=== PATIENT | female | born 1985 | race Caucasian/White ===

== ENCOUNTER 2016-11-12 21:18 | Inpatient (IN) ==
[2016-11-12] MEDS ORDERED: Ondansetron 4 MG/2 ML VIAL IVP ONE (21:39)
--- NOTE | 2016-11-12 21:39 | Emergency Department Note ---
Overdose - [facility] Narrative Medical decision making narrative: After stabilization, pulse ox is now 90% on nonrebreather. Patient began having vomiting, gave her Zofran. Will obtain overdose labs, chest x-ray. Patient's significant wheezes and rhonchi bilateral lower lobes. Will admit for hypoxia, overdose, possible aspiration pneumonia and start antibiotics. 23:14 patient has leukocytosis, a catheter on labs. Chest x-ray was negative. However, still concern for aspiration pneumonia, may just be too early to show up on x-ray. We will give patient fluids, vancomycin, Zosyn. Patient continues to refuse urinating for UA. - Medical Records Medical records reviewed: Yes I reviewed the patient's medical records. - Lab Data Lab results reviewed: Yes I reviewed the patient's lab results. Result diagrams: 11/12/16 21:35 11/12/16 21:35 Lab Results 11/12/16 11/12/16 11/12/16 Range/Units 21:35 21:35 21:35 WBC 24.5 H (4.3-11.1) K/mcL RBC 4.09 (3.82-4.97) M/mcL Hgb 12.1 (11.5-15.4) g/dL Hct 39.2 (35.3-44.9) % MCV 95.8 (83.0-100.0) fL MCH 29.6 (28.0-33.3) pg MCHC 30.9 L (31.6-35.5) g/dL RDW 14.4 (11.5-14.5) % Plt Count 464 H (140-400) K/mcL MPV 11.5 (9.4-12.4) fL Seg Neutrophils % 70.0 % Band Neutrophils % 0.0 (0-4) % Lymphocytes % 23.0 % Monocytes % 6.0 % Eosinophils % 1.0 % Neutrophils # 17.2 H (1.6-8.9) K/mcL Lymphocytes # 5.6 H (0.6-4.6) K/mcL Monocytes # 1.5 H (0.0-1.3) K/mcL Eosinophils # 0.3 (0.0-0.6) K/mcL Platelet Estimate Slight increase H (Normal) Sodium 139 (136-145) mEq/L Potassium 4.9 H (3.5-4.5) mEq/L Chloride 101 (98-109) mEq/L Carbon Dioxide 21 (19-29) mEq/L BUN 12 (7-20) mg/dL Creatinine 1.47 H (0.57-1.11) mg/dL Est GFR ( Amer) 51 L (> 60) Est GFR (Non-Af Amer) 42 L (> 60) BUN/Creatinine Ratio 8 (6-26) Glucose 388 H (70-99) mg/dL Calculated Osmolality 304 H (280-300) Calcium 9.0 (8.6-10.8) mg/dL Troponin I 0.01 (0-0.03) ng/mL B-Natriuretic Peptide (0-100) pg/mL Salicylates < 5.0 L (15-30) mg/dL Acetaminophen < 1.0 L (10-30) mcg/mL Ethyl Alcohol < 10 (0-10) mg/dL 11/12/16 Range/Units 21:35 WBC (4.3-11.1) K/mcL RBC (3.82-4.97) M/mcL Hgb (11.5-15.4) g/dL Hct (35.3-44.9) % MCV (83.0-100.0) fL MCH (28.0-33.3) pg MCHC (31.6-35.5) g/dL RDW (11.5-14.5) % Plt Count (140-400) K/mcL MPV (9.4-12.4) fL Seg Neutrophils % % Band Neutrophils % (0-4) % Lymphocytes % % Monocytes % % Eosinophils % % Neutrophils # (1.6-8.9) K/mcL Lymphocytes # (0.6-4.6) K/mcL Monocytes # (0.0-1.3) K/mcL Eosinophils # (0.0-0.6) K/mcL Platelet Estimate (Normal) Sodium (136-145) mEq/L Potassium (3.5-4.5) mEq/L Chloride (98-109) mEq/L Carbon Dioxide (19-29) mEq/L BUN (7-20) mg/dL Creatinine (0.57-1.11) mg/dL Est GFR ( Amer) (> 60) Est GFR (Non-Af Amer) (> 60) BUN/Creatinine Ratio (6-26) Glucose (70-99) mg/dL Calculated Osmolality (280-300) Calcium (8.6-10.8) mg/dL Troponin I (0-0.03) ng/mL B-Natriuretic Peptide 21 (0-100) pg/mL Salicylates (15-30) mg/dL Acetaminophen (10-30) mcg/mL Ethyl Alcohol (0-10) mg/dL - Radiology Data Radiology results reviewed: Yes I reviewed the patient's radiology results. Chest X-Ray 11/12/16 21:29 IMPRESSION: No acute process. D/ / Rock Rose MD / Rock Rose MD Interpreting Provider: Rock Rose MD Overdose HPI - General Chief Complaint: ED Overdose Stated Complaint: overdose Time Seen by Provider: 11/12/16 21:28 Source: other Limitations: other Nursing Notes Reviewed: Yes Vital Signs Reviewed: Yes - History of Present Illness HPI Narrative: Patient is a 30-year-old female with unknown past medical history who presents today by private vehicle due to overdose. Patient was wheeled into the room, slumped over, not responding, very pale. She did have weak pulses and agonal breathing. Patient was bagged, given 4 mg of Narcan. Initial oxygen saturation was in the 40s. Patient became responsive shortly after Narcan. She then sat up and had significant wheezing and rhonchi in bilateral lower lobes on exam. Placed on nonrebreather and sats came up to low 90s. - Related Data Previous Rx's Medication Instructions Recorded Ciprofloxacin [Cipro] 500 mg PO BID #14 tablet 07/03/16 Ibuprofen [Motrin] 800 mg PO Q8HR PRN #30 tablet 07/03/16 Phenazopyridine HCl [Pyridium] 200 mg PO TID #6 tab 07/03/16 Allergies Allergy/AdvReac Type Severity Reaction Status Date / Time No Known Allergies Allergy Verified 03/25/15 19:45 Limitations: ROS unobtainable due to patients medical condition Past Medical History - Past Medical History Medical history: Reports: non-contributory Surgical history: Reports: other Psychiatric history: Reports: no psych history TABLE LEVER 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: Reports: no TABLE LEVER 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 - Social History Smoking Status: Current every day smoker Smokeless Tobacco Status: No Alcohol use: Reports: none Drug use: Reports: none Physical Exam - General Limitations: other General appearance: in distress - Head Head exam: atraumatic, normocephalic, normal inspection - Eye Eye exam: Present: normal appearance, PERRL, EOMI - Neck Neck exam: Present: normal inspection, full ROM, trachea midline - Chest Chest inspection: Present: normal inspection, other (shallow chest rise) - Respiratory Respiratory exam: Present: wheezes (Significant wheeze and rhonchi of bilateral LL) - Cardiovascular Cardiovascular exam: Present: normal rhythm, tachycardia, normal heart sounds - Abdominal Exam Abdominal exam: Present: soft. Absent: distention - Extremities Exam Extremities exam: Present: other (multiple track del rosario on left wrist, bruising of thighs) - Neurological Exam Neurological exam: Present: other - Psychiatric Psychiatric exam: Present: other (unresponsive) - Skin Skin exam: Present: other (multiple track del rosario on left wrist, bruising of thighs) Course Course Narrative: After stabilization, pulse ox is now 90% on nonrebreather. Patient began having vomiting, gave her Zofran. Will obtain overdose labs, chest x-ray. Patient's significant wheezes and rhonchi bilateral lower lobes. Will admit for hypoxia, overdose, possible aspiration pneumonia and start antibiotics. 23:14 patient has leukocytosis, a catheter on labs. Chest x-ray was negative. However, still concern for aspiration pneumonia, may just be too early to show up on x-ray. We will give patient fluids, vancomycin, Zosyn. Patient continues to refuse urinating for UA. Vital Signs Temperature 0 F L 11/12/16 21:19 Pulse Rate 128 11/12/16 21:19 Respiratory Rate 12 11/12/16 21:19 Blood Pressure 109/84 11/12/16 21:19 O2 Sat by Pulse Oximetry 90 11/12/16 21:19 Temperature 0 F L 11/12/16 21:19 Pulse Rate 115 11/12/16 23:02 Respiratory Rate 22 11/12/16 23:02 Blood Pressure 114/72 11/12/16 23:02 O2 Sat by Pulse Oximetry 96 11/12/16 23:02 Oxygen Delivery Oxygen Delivery Nasal Cannula Critical Care Time Critical Care Time: Yes Total Critical Care Time: 35 Attestation: The high probability of a clinically significant, sudden or life threatening deterioration of the resp system(s) required my full and direct attention, intervention and personal management. The aggregate critical care time was [35] minutes. This time is in addition to time spent performing reported procedures but includes the following: [] Data Review and interpretation [] Patient assessment and monitoring of vital signs [] Documentation [] Medication orders and management Disposition Clinical Impression: ASHLEE (acute kidney injury), Cough Overdose Qualifiers: Encounter type: initial encounter Injury intent: accidental or unintentional Qualified Code(s): T50.901A - Poisoning by unspecified drugs, medicaments and biological substances, accidental (unintentional), initial encounter Leukocytosis Qualifiers: Leukocytosis type: unspecified Qualified Code(s): D72.829 - Elevated white blood cell count, unspecified Dyspnea Qualifiers: Dyspnea type: unspecified Qualified Code(s): R06.00 - Dyspnea, unspecified Disposition: Admitted As Inpatient Condition: Fair Referrals: Unassigned,Provider [Non-Partnered Physician] - Forms: ED Satisfaction Letter Time of Disposition: 23:46 (Admit to ICU) S.B.A.Monica - S.B.A.Monica Situation: Demographics, MOA Background: Presenting Complaint, Relevant PMH, Meds, & Allergies Assessment: Vital Signs, Course and respsone to treatment, Exam Concerns, Patient/Family Expectation, Pertinant Lab Results, Outstanding Labs Recommendation: Barrier(s) to disposition, Recommendation based on pending studies, treatments, or consults S.B.A.REliz Report Given to: Dr. Salvador Aldridge Repor Time: 23:46 Attestation Statement - Attestation Attestation: I examined this patient and my medical decision-making was reviewed with the BOOKING OFFICER/PA/Advanced Practice Nurse/Resident Physician. I agree with the documented findings, disposition and treatment plan as described except to the extent set forth below.
[2016-11-12 21:42] LABS: Hematocrit 39.2 % (35.3-44.9); Hemoglobin 12.1 g/dL (11.5-15.4); Mean Corpuscular HGB Conc 30.9 g/dL (31.6-35.5); Mean Corpuscular Hemoglobin 29.6 pg (28.0-33.3); Mean Corpuscular Volume 95.8 fL (83.0-100.0); Mean Platelet Volume 11.5 fL (9.4-12.4); Platelet Count 464 K/mcL (140-400); Red Blood Count 4.09 M/mcL (3.82-4.97); Red Cell Distribution Width 14.4 % (11.5-14.5)
[2016-11-12 21:57] LABS: BUN/Creatinine Ratio 8 (6-26); Blood Urea Nitrogen 12 mg/dL (7-20); Carbon Dioxide 21 mEq/L (19-29); Chloride 101 mEq/L (98-109); Glucose 388 mg/dL (70-99); Osmolality,Calculated 304 (280-300); Potassium 4.9 mEq/L (3.5-4.5); Sodium 139 mEq/L (136-145); eGFR For African Americans 51 (> 60); eGFR For Non-African Americans 42 (> 60)
[2016-11-12 21:58] LABS: Acetaminophen < 1.0 mcg/mL (10-30); Ethanol < 10 mg/dL (0-10); Salicylate < 5.0 mg/dL (15-30)
[2016-11-12 22:02] LABS: Eosinophils # 0.3 K/mcL (0.0-0.6); Lymphocytes # 5.6 K/mcL (0.6-4.6); Monocytes # 1.5 K/mcL (0.0-1.3); Neutrophils # 17.2 K/mcL (1.6-8.9)
[2016-11-12] MEDS ORDERED: 0.9 % Sodium Chloride 1,000 ML ONE (22:31)
[2016-11-12] MEDS ORDERED: *HR* Promethazine 25 MG/ML VIAL IVP ONE (23:02)
[2016-11-12] MEDS ORDERED: Vancomycin 1,000 MG in D5% in Water 250 ML IVPB ONE (23:04)
[2016-11-12] MEDS ORDERED: Piperacillin/Tazobactam 3.375 GM in D5% in Water (Mini-Bag+) 100 ML IVPB ONE (23:04)
--- NOTE | 2016-11-13 00:38 | Internal Med History&Physical ---
<Dav Gates - Last Filed: 11/13/16 02:18> Date of Encounter: 11/13/16 Time of Encounter: 00:10 Assessment and Plan (1) Overdose Current visit: Yes Status: Acute Patient presented unresponsive following heroin usage at a friend's house earlier this evening. She was given Narcan in the ED, to which she responded well. She continued to be somnolent, but was answer to respond to questions and follow commands appropriately. Will continue to monitor patient for signs of withdrawal Continue telemetry given tachycardia Will continue Pulse oximetry given patient recent hypoxia Will continue Vancomycin and start patient on Unasyn because of concern of oral bacteria inoculation Nausea control with Zofran, Phergan, Compazine, or reglan will obtain HIV and hepatitis profile Continue supplemental fluids Likely patient can move to stepdown, but will watch her overnight Will obtain UDS Will obtain UA Acetaminophen for fever Qualifiers: Encounter type: initial encounter Injury intent: accidental or unintentional Qualified Code(s): T50.901A - Poisoning by unspecified drugs, medicaments and biological substances, accidental (unintentional), initial encounter (2) Leukocytosis Current visit: Yes Status: Acute Patient presents with elevated white blood cell count 24.5, 17.2 neutrophils number. This elevation is likely related to patient hair one overdose. Chest x -ray was negative for acute process, does not appear to be any cellulitis or abscess, and urine so far cannot be obtained due to patient refusal. There is concern of bacteremia/endocarditis given patient history of IV drug abuse, increased body temperature, and leukocytosis. No murmurs heard on exam We will obtain blood cultures Antibiotics with vancomycin and Unasyn due to concerns of oral bacteria and MRSA We will obtain HIV screen and hepatitis profile We will check lactic acid and hepatic panel Patient leukocytosis will likely improve given administration of IV fluids, but will recheck CBC in the morning Qualifiers: Leukocytosis type: unspecified Qualified Code(s): D72.829 - Elevated white blood cell count, unspecified (3) ASHLEE (acute kidney injury) Current visit: Yes Status: Acute Patient presents with acute kidney injury with elevated serum creatinine 1.47, previous documented serum creatinine 0.85. Current ASHLEE likely due to decreased by mouth intake with drug usage and nausea. Patient received 2 L bolus in the emergency department. Patient appears dry on exam. We will give additional fluid bolus Continue supplemental fluids 100 mL an hour Allow patient to eat/drink We will obtain UA Recheck serum creatinine with morning chemistry (4) Dyspnea Current visit: Yes Status: Acute Patient initially presented with some dyspnea, best patient became more responsive shortness of breath improved. She no longer requires supplemental oxygen is maintaining an oxygen saturation in the high 90s to 100 on room air. We will continue to monitor patient on continuous pulse oximetry We will provide supplemental oxygen as needed to maintain oxygen saturation, and will wean as tolerated Qualifiers: Dyspnea type: unspecified Qualified Code(s): R06.00 - Dyspnea, unspecified (5) Hyperkalemia Current visit: Yes Status: Acute Patient has hyperkalemia 4.9, likely related to patient hyperglycemia. Will expect potassium to improve with fluids and better control patient blood sugar. We will continue to monitor with chemistry in the morning We will give another 500 mL bolus fluids Continue supplemental normal saline at 100 mL an hour (6) Hyperglycemia Current visit: Yes Status: Acute Patient hyperglycemia likely related to stress reaction given unresponsiveness with recent drug usage. We will obtain hemoglobin A1c Every 6 hours Accu-Cheks Low-dose sliding scale insulin Likely patient's hyperglycemia will resolve with the use of fluids (7) DVT prophylaxis Current visit: Yes Status: Acute 5000 units heparin subcutaneous 3 times a day Internal Medicine - H&P: HPI Chief complaint: Unresponsive, OD Admitted From: Home Plans for Post Hospital Care: Home History of present illness: Ms. Patrick is a 30 year old female with no significant prior medical history who is brought to [place] because of unresponsiveness after heroin usage. She was given Narcan in the emergency room and responded well. She became responsive and was able to maintain her oxygen saturation without the need for supplemental oxygen. She states that she had gone out that evening was having a lot of friends of hers and they had done some heroin. Bowels last night she remembers before waking up in the hospital. Although responsive now, she has continued to have nausea and vomiting. She also complains of fatigue, headache, and feeling cold. She states is not the first time she is on heroin, but she does report using clean needles. She does report liking her needles before use, however. She denies any chest pain, fever , or pain with breathing. Past Med Surg Social Fam HX - Past Medical History Medical history: non-contributory Psychiatric history: no psych history - Past Surgical History Surgical History: other - Social History Smoking Status: Current every day smoker Smokeless Tobacco Status: No Alcohol use: none Drug use: none Internal Medicine - H&P: Meds Ciprofloxacin [Cipro] 500 mg PO BID #14 tablet 07/03/16 [Rx] Ibuprofen [Motrin] 800 mg PO Q8HR PRN #30 tablet 07/03/16 [Rx] Phenazopyridine HCl [Pyridium] 200 mg PO TID #6 tab 07/03/16 [Rx] Allergies No Known Allergies Allergy (Verified 03/25/15 19:45) - Constitutional Constitutional: chills, fatigue, no fever(s) - EENT Eyes: no blurry vision, no change in vision, no loss of vision, no photophobia Nose, mouth and throat: no dry mouth, no dysphagia, no sore throat - Cardiovascular Cardiovascular ROS IM: no chest pain, no diaphoresis, no dyspnea, no dyspnea on exertion - Respiratory Respiratory: no cough, no dyspnea, no pain on inspiration - Gastrointestinal Gastrointestinal: nausea, vomiting, no abdominal pain, no constipation, no diarrhea - Genitourinary Genitourinary: no dysuria, no hematuria - Integumentary Integumentary IM: no rash, no unusual bruising - Neurological Neurological ROS: headache(s), no loss of vision, no numbness, no tingling, no weakness - Constitutional Vitals: Temp Pulse Resp BP Pulse Ox 0 F L 115 22 121/84 96 11/12/16 21:19 11/12/16 23:02 11/13/16 00:11 11/13/16 00:11 11/12/16 23:02 Exam: General: Cooperative, no acute distress, alert and oriented 3, answers questions appropriately, somnolent Head: Normocephalic, atraumatic Eye: Conjunctiva pink, sclera anicteric, PERRL Neck: Supple, trachea midline, mucous membranes moist Respiratory: No accessory muscle usage, clear to auscultation bilaterally, no wheezes/rhonchi/rales appreciated Cardiovascular: Tachycardia, S1 and S2 present, no murmurs/rubs/gallops/clicks appreciated GI/abdominal: Nondistended, nontender, soft, normal bowel sounds, no peritoneal signs Extremities: No calf tenderness, noncyanotic, no pedal edema appreciated, warm, lower extremity pulses palpable and symmetrical, track del rosario left arm, no track del rosario webspaces Neurological: Alert and oriented 3, no facial droop, no focal deficits Skin: Dry, intact, normal color Internal Med - H&P Results - Labs CBC & Chem 7: 11/12/16 21:35 11/12/16 21:35 - EKG Data -: EKG Interpreted by Myself EKG shows normal: sinus rhythm Rate: tachycardia - EKG Data Prior EKG available for review: no - Impressions Impressions Chest X-Ray 11/12/16 21:29 IMPRESSION: No acute process. D/ / Rock Rose MD / Rock Rose MD Interpreting Provider: Rock Rose MD <MohinderWyatt R - Last Filed: 11/13/16 03:49> Date of Encounter: 11/13/16 Internal Medicine - H&P: HPI History of present illness: Ms. Patrick is a 30 year old female All Systems PM: A 10-system review of systems was performed and is negative for pertinent findings except as documented above in the HPI. - Constitutional Vitals: Temp Pulse Resp BP Pulse Ox 99.4 F 83 14 116/76 96 11/13/16 01:16 11/13/16 03:01 11/13/16 03:01 11/13/16 03:01 11/13/16 03:01 Internal Med - H&P Results - Labs CBC & Chem 7: 11/13/16 02:34 11/13/16 02:34 Labs: Short CBC 11/13/16 Range/Units 02:34 WBC 26.2 H (4.3-11.1) K/mcL Hgb 10.8 L (11.5-15.4) g/dL Hct 32.1 L (35.3-44.9) % Plt Count 294 (140-400) K/mcL BMP 11/13/16 02:34 Sodium 139 Potassium 4.2 Chloride 109 Carbon Dioxide 19 BUN 12 Creatinine 0.78 Glucose 77 Calcium 7.6 L D Liver Function 11/13/16 Range/Units 02:34 Total Bilirubin 0.3 (0.2-1.2) mg/dL Direct Bilirubin 0.1 (0.0-0.5) mg/dL AST 37 H (5-34) Units/L ALT 22 (0-55) Units/L Alkaline Phosphatase 75 (38-126) Units/L Albumin 2.8 L (3.5-5.0) g/dL - Attending Attestation I examined this patient and my medical decision-making was reviewed with the DISBURSEMENT CLERK/PA/Advanced Practice Nurse/Resident Physician. I agree with the documented findings, disposition and treatment plan as described except to the extent set forth below. Agree with Dr. Gates. Patient can be transferred to step down unit.
[2016-11-13] MEDS ORDERED: Naloxone 0.4 MG/ML INJ IVP PRN (00:45)
[2016-11-13] MEDS ORDERED: Acetaminophen 325 MG TABLET PO PRN (00:45)
[2016-11-13] MEDS: 0.9 % Sodium Chloride 1,000 ML IVC ONE ×3 (01:14→02:14)
[2016-11-13] MEDS: 0.9 % Sodium Chloride 1,000 ML IVC SCH ×3 (01:14→21:24)
[2016-11-13] MEDS: Metoclopramide 10 MG/2 ML VIAL IVP PRN (01:15)
[2016-11-13 01:19] LABS: Magnesium 2.7 mg/dL (1.6-2.6); Phosphorous 9.6 mg/dL (2.3-4.7)
[2016-11-13] MEDS ORDERED: Prochlorperazine 10 MG/2 ML VIAL IVP PRN (02:05)
[2016-11-13] MEDS ORDERED: 0.9 % Sodium Chloride 1,000 ML IVC ONE (02:05)
[2016-11-13] MEDS ORDERED: Dextrose Gel 15 GM PO PRN ×2 (02:08)
[2016-11-13] MEDS ORDERED: *HR* Dextrose 50 % in Water (Syg) 50 ML SYRINGE IVP PRN (02:08)
[2016-11-13] MEDS ORDERED: D5% in Water 1,000 ML IVC PRN (02:08)
[2016-11-13 02:41] LABS: Hemoglobin 10.8 g/dL (11.5-15.4); Red Cell Distribution Width 13.9 % (11.5-14.5)
[2016-11-13 02:43] LABS: Hematocrit 32.1 % (35.3-44.9); Immature Platelets 6.5 % (1.1-6.1); Mean Corpuscular HGB Conc 33.6 g/dL (31.6-35.5); Mean Corpuscular Hemoglobin 30.3 pg (28.0-33.3); Mean Corpuscular Volume 90.2 fL (83.0-100.0); Mean Platelet Volume 11.5 fL (9.4-12.4); Platelet Count 294 K/mcL (140-400); Red Blood Count 3.56 M/mcL (3.82-4.97)
[2016-11-13 02:51] LABS: Hemoglobin A1C 5.1 %
[2016-11-13 02:53] LABS: BUN/Creatinine Ratio 15 (6-26); Blood Urea Nitrogen 12 mg/dL (7-20); Carbon Dioxide 19 mEq/L (19-29); Chloride 109 mEq/L (98-109); Glucose 77 mg/dL (70-99); Osmolality,Calculated 287 (280-300); Sodium 139 mEq/L (136-145); eGFR For African Americans > 60 (> 60); eGFR For Non-African Americans > 60 (> 60)
[2016-11-13 02:54] LABS: Calcium 7.6 mg/dL (8.6-10.8); Potassium 4.2 mEq/L (3.5-4.5)
[2016-11-13 02:55] LABS: Albumin 2.8 g/dL (3.5-5.0); Albumin/Globulin Ratio 0.8 (1.1-2.2); Bilirubin,Direct 0.1 mg/dL (0.0-0.5); Bilirubin,Indirect 0.2 mg/dL (0.0-1.2); Bilirubin,Total 0.3 mg/dL (0.2-1.2); Globulin 3.3 g/dL (2.4-3.5); Total Protein 6.1 g/dL (6.0-8.3)
[2016-11-13] MEDS ORDERED: Vancomycin 1,000 MG in D5% in Water 250 ML IVPB SCH (03:00)
[2016-11-13 03:51] LABS: Amphetamine Screen,Urine Negative ng/mL (Cutoff=1000); Barbiturate Screen,Urine Negative ng/mL (Cutoff=200); Benzodiazepines Screen,Urine Negative ng/mL (Cutoff=200); Cannabinoid Screen,Urine Positive ng/mL (Cutoff = 50); Cocaine Screen,Urine Positive ng/mL (Cutoff= 300); Opiate Screen,Urine Positive ng/mL (Cutoff=300); Phencyclidine Screen,Urine Negative ng/mL (Cutoff=25)
[2016-11-13 04:12] LABS: Bilirubin,Urine Negative (Negative); Blood,Urine Negative (Negative); Clarity,Urine Cloudy (Clear); Color,Urine Yellow (Yellow); Glucose,Urine (UA) Normal (Normal); Ketones,Urine 40 mg/dL (Negative); Leukocyte Esterase,Urine Trace (Negative); Nitrite,Urine Positive (Negative); PH,Urine 6.5 pH Units (5.0-8.0); Protein,Urine Negative (Neg-Trace); Specific Gravity,Urine 1.019 (1.010-1.025); Urobilinogen,Urine Normal (Normal)
[2016-11-13 04:15] LABS: Bacteria,Urine Moderate per hpf (None-Few); Hyaline Casts,Urine None Seen per lpf (None-Few); RBC,Urine 0-3 per hpf (0-3); Squamous Epithelial Cell,Urine Many per lpf (None-Few)
[2016-11-13 04:16] LABS: Lymphocytes # 1.1 K/mcL (0.6-4.6); Monocytes # 1.1 K/mcL (0.0-1.3); Neutrophils # 24.1 K/mcL (1.6-8.9); Platelet Estimate Normal (Normal)
[2016-11-13] MEDS: Ampicillin/Sulbactam 3,000 MG in 0.9 % Sodium Chloride Mini Bag 100 ML IVPB SCH ×4 (04:55→23:52)
[2016-11-13] MEDS: *HR* Heparin 5,000 UNIT/ML VIAL SQ SCH ×3 (04:56→21:20)
[2016-11-13] MEDS: Insulin LISPRO 300 UNITS/3 ML VIAL SQ SCH ×4 (04:56→23:58)
--- NOTE | 2016-11-13 08:08 | Electrocardiograph Report ---
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
--- NOTE | 2016-11-13 09:54 | Internal Med Progress Note ---
Date of Encounter: 11/13/16 Time of Encounter: 08:45 - Assessment and plan (1) Overdose Current Visit: Yes Status: Acute Assessment and plan: Admitted secondary to heroin overdose UDS positive for opiates, cocaine, and marijuana Mental status somnolent but arousable continue supportive care IV fluids will continue ICU care until mental status more alert. Transfer to step down unit once mental status more awake and alert Qualifiers: Encounter type: initial encounter Injury intent: accidental or unintentional Qualified Code(s): T50.901A - Poisoning by unspecified drugs, medicaments and biological substances, accidental (unintentional), initial encounter (2) UTI (urinary tract infection) Current Visit: Yes Status: Acute Assessment and plan: UA consistent with UTI follow up urine cultures can be contributing to the leukocytosis continue empiric IV abx Follow up HIV and hepatitis panel F/U 2D echo to rule out valvular vegetations given history of IVDA continue IV fluids Acetaminophen Prn fever Qualifiers: Urinary tract infection type: site unspecified Hematuria presence: without hematuria Qualified Code(s): N39.0 - Urinary tract infection, site not specified (3) Leukocytosis Current Visit: Yes Status: Acute Assessment and plan: Likely multifactorial management as listed above Qualifiers: Leukocytosis type: unspecified Qualified Code(s): D72.829 - Elevated white blood cell count, unspecified (4) ASHLEE (acute kidney injury) Current Visit: Yes Status: Resolved Assessment and plan: Resolved at this time continue to monitor (5) DVT prophylaxis Current Visit: Yes Status: Acute Assessment and plan: Heparin SQ - Subjective Interval history: Patient seen and examined at bedside. Resting in bed. Somnolent but arousable. Reports of using heroin prior to hospitalization. Pt not able to actively converse due to drowsy mental status. Able to state her name and place, but unclear of the time. - Constitutional Vitals: Temp Pulse Resp BP Pulse Ox 98.3 F 54 19 132/72 96 11/13/16 09:16 11/13/16 07:50 11/13/16 07:50 11/13/16 07:50 11/13/16 07:50 General appearance: Present: A&O X 2 (somnolent), no acute distress - Head Head exam: Present: atraumatic, normocephalic - Eye Eye exam: Present: normal appearance, PERRL, conjuntiva pink, sclera anicteric - Respiratory Respiratory exam: Present: CTAB. Absent: respiratory distress, wheezes - Cardiovascular Cardiovascular exam: Present: RRR, +S1, +S2. Absent: diastolic murmur, gallop, rubs, systolic murmur - GI/Abdominal GI/Abdominal exam: Present: normal bowel sounds, soft, no peritoneal signs. Absent: distended, tenderness - Extremities Exam Extremities exam: Present: warm, radial pulses palpable and symetrical. Absent : calf tenderness, cyanotic, pedal edema - Neurological Exam Neurological exam: Present: alert (somnolent), no focal deficits. Absent: pronater drift, facial droop, speech deficit Internal Medicine: Result - Labs CBC & Chem 7: 11/13/16 02:34 11/13/16 02:34 Labs: Short CBC 11/13/16 Range/Units 02:34 WBC 26.2 H (4.3-11.1) K/mcL Hgb 10.8 L (11.5-15.4) g/dL Hct 32.1 L (35.3-44.9) % Plt Count 294 (140-400) K/mcL Neutrophils # 24.1 H (1.6-8.9) K/mcL BMP 11/13/16 02:34 Sodium 139 Potassium 4.2 Chloride 109 Carbon Dioxide 19 BUN 12 Creatinine 0.78 Glucose 77 Calcium 7.6 L D Liver Function 11/13/16 Range/Units 02:34 Total Bilirubin 0.3 (0.2-1.2) mg/dL Direct Bilirubin 0.1 (0.0-0.5) mg/dL AST 37 H (5-34) Units/L ALT 22 (0-55) Units/L Alkaline Phosphatase 75 (38-126) Units/L Albumin 2.8 L (3.5-5.0) g/dL Urine 11/13/16 Range/Units 03:33 Urine Color Yellow (Yellow) Urine Clarity Cloudy A (Clear) Urine pH 6.5 (5.0-8.0) pH Units Ur Specific [place] 1.019 (1.010-1.025) Urine Protein Negative (Neg-Trace) mg/dL Urine Glucose (UA) Normal (Normal) mg/dL Consult Discharge Plan - Plan Referrals: NO,PCP [Primary Care Provider] -
[2016-11-13] MEDS: Ondansetron 4 MG/2 ML VIAL IVP PRN ×2 (10:24→23:58)
[2016-11-13 11:46] LABS: HIV-1&2 Antibody & p24 Ag Nonreactive (Nonreactive); Hepatitis A Antibody IgM Nonreactive (Nonreactive); Hepatitis B Core IgM Nonreactive (Nonreactive); Hepatitis B Surface Antigen Nonreactive (Nonreactive); Hepatitis C Virus Antibody Nonreactive (Nonreactive)
[2016-11-13] MEDS: Vancomycin 1,000 MG in D5% in Water 250 ML IVPB SCH (14:52)
[2016-11-13] MEDS ORDERED: 0.9 % Sodium Chloride 250 ML IVC PRN (14:58)
--- NOTE | 2016-11-13 15:49 | ECHO - Doppler Report ---
Echocardiogram Name: Arminda Patrick Date of Study: 11/13/2016 Date: 1985 Ht: 64.0 in Medical Record#: [id number] Age: 30 Wt: 130.0 lb Gender: Female BSA: 1.63 Order #: [id number] Location: [facility] Room #: 02 Reading Physician: Rock Carbone MD, [facility] Outside Sales Account Representative: Steff Ghotra RVT, [facility] Ordering Physician: Aileen Huertas MD Primary Physician: Same as Ordering Provider Indications: rule out valvular vegetations Impressions: Normal LV systolic function, LVEF 65%. Normal left ventricular diastolic function. Normal right ventricular size and function. No significant valvular dysfunction. No evidence of pulmonary hypertension. Left Ventricular Wall Motion: Rest Echo Findings All wall segments showed normal motion. Findings: Study Quality * Technically adequate exam. ECG Findings * Sinus arrhythmia. Left Ventricle * Normal LV systolic function, LVEF 65%. * Normal LV chamber size and wall thickness. * Normal left ventricular diastolic function. Right Ventricle * Normal right ventricular size and function. Left Atrium * Normal left atrial size. Right Atrium * Normal right atrial size. Aorta * Normally sized aortic root. Pericardium * There is no pericardial effusion present. IVC * The IVC is not dilated. Aortic Valve * Aortic valve not well visualized. * No aortic stenosis. * No aortic regurgitation. Mitral Valve * Normal mitral valve structure. * No mitral stenosis. * No mitral regurgitation. Tricuspid Valve * Normal tricuspid valve structure. * No tricuspid stenosis. * Trace tricuspid regurgitation. * No evidence of pulmonary hypertension. Pulmonic Valve * Pulmonic valve not well visualized. * No pulmonic stenosis. * No pulmonic regurgitation. Measurements: BP: 146/ 77 2D Normal Values RVIDd: 3.10 cm IVSd: .90 cm 0.6 - 1.0 cm LVIDd: 4.20 cm 3.7 - 5.6 cm LVPWd: .80 cm 0.6 - 1.1 cm LVIDs: 3.00 cm 1.5 - 3.6 cm AO: 2.80 cm < 4.0 cm %FS: 28.60 cm >25 % LA volume: 36 Tricuspid Valve TV Regurg Peak Grad: 22.00mmHg TV Regurg Peak Tim: 2.36m/sec Updated by Rock Carbone MD, [facility] on 11/13/2016 3:45:00 PM electronically signed on 11/13/2016 3:45:31 PM with status of Final Wall Motion Koch: 1=Normal, 2=Hypokinesis, 3=Akinesis, 4=Dyskinesis, 5=Aneurysmal, 6=Hyperkinetic, X=Not Visualized (Blank)=Missing
[2016-11-14] MEDS: *HR* Promethazine 25 MG/ML VIAL IVP PRN (00:31)
[2016-11-14] MEDS: Metoclopramide 10 MG/2 ML VIAL IVP PRN (00:52)
[2016-11-14] MEDS ORDERED: Scopolamine Patch 1.5 MG PATCH.TD72 TD STA (01:41)
[2016-11-14] MEDS: Vancomycin 1,000 MG in D5% in Water 250 ML IVPB SCH ×2 (01:45→13:30)
[2016-11-14] MEDS: 0.9 % Sodium Chloride 1,000 ML IVC SCH ×3 (01:46→18:06)
[2016-11-14] MEDS: Ampicillin/Sulbactam 3,000 MG in 0.9 % Sodium Chloride Mini Bag 100 ML IVPB SCH ×3 (04:13→18:04)
[2016-11-14] MEDS: Metoclopramide 10 MG/2 ML VIAL IVP SCH ×4 (04:14→23:14)
[2016-11-14] MEDS: *HR* Heparin 5,000 UNIT/ML VIAL SQ SCH ×3 (04:14→22:44)
[2016-11-14] MEDS: Insulin LISPRO 300 UNITS/3 ML VIAL SQ SCH ×3 (04:15→17:59)
[2016-11-14 05:17] LABS: Basophils % 0.2 %; Eosinophils % 0.1 %; Hemoglobin 11.1 g/dL (11.5-15.4); Immature Granulocytes % 1.5 % (0-4); Lymphocytes # 1.2 K/mcL (0.6-4.6); Lymphocytes % 11.3 %; Mean Corpuscular HGB Conc 33.6 g/dL (31.6-35.5); Mean Corpuscular Hemoglobin 29.8 pg (28.0-33.3); Mean Corpuscular Volume 88.7 fL (83.0-100.0); Mean Platelet Volume 11.9 fL (9.4-12.4); Monocytes # 0.5 K/mcL (0.0-1.3); Monocytes % 4.2 %; Platelet Count 316 K/mcL (140-400); Red Blood Count 3.72 M/mcL (3.82-4.97); Segmented Neutrophils % 82.7 %
[2016-11-14 05:18] LABS: Neutrophils # 8.9 K/mcL (1.6-8.9)
[2016-11-14 05:31] LABS: BUN/Creatinine Ratio 14 (6-26); Blood Urea Nitrogen 11 mg/dL (7-20); Calcium 8.2 mg/dL (8.6-10.8); Carbon Dioxide 21 mEq/L (19-29); Chloride 107 mEq/L (98-109); Glucose 132 mg/dL (70-99); Magnesium 1.6 mg/dL (1.6-2.6); Osmolality,Calculated 287 (280-300); Potassium 3.6 mEq/L (3.5-4.5); Sodium 138 mEq/L (136-145); eGFR For African Americans > 60 (> 60); eGFR For Non-African Americans > 60 (> 60)
[2016-11-14] MEDS ORDERED: Sodium Phosphate 30 MMOL in D5% in Water 100 ML IVPB PRN (05:41)
[2016-11-14] MEDS ORDERED: Calcium Gluconate 1,000 MG in D5% in Water 100 ML IVPB PRN (05:41)
[2016-11-14] MEDS ORDERED: Magnesium Sulfate 2 GM in D5% in Water 100 ML IVPB PRN (05:41)
[2016-11-14] MEDS: Potassium Phosphate 44 MEQ in 0.9 % Sodium Chloride 250 ML IVPB PRN (06:40)
[2016-11-14] MEDS: Ondansetron 4 MG/2 ML VIAL IVP PRN ×2 (07:58→11:32)
[2016-11-14 08:26] LABS: Basophils % 0.1 %; Hematocrit 33.5 % (35.3-44.9); Hemoglobin 11.4 g/dL (11.5-15.4); Immature Granulocytes % 0.9 % (0-4); Lymphocytes # 1.2 K/mcL (0.6-4.6); Lymphocytes % 9.8 %; Mean Corpuscular Hemoglobin 30.3 pg (28.0-33.3); Mean Corpuscular Volume 89.1 fL (83.0-100.0); Monocytes # 0.4 K/mcL (0.0-1.3); Monocytes % 3.5 %; Neutrophils # 10.1 K/mcL (1.6-8.9); Platelet Count 312 K/mcL (140-400); Red Blood Count 3.76 M/mcL (3.82-4.97); Segmented Neutrophils % 85.7 %
[2016-11-14 08:35] LABS: BUN/Creatinine Ratio 13 (6-26); Blood Urea Nitrogen 10 mg/dL (7-20); Carbon Dioxide 24 mEq/L (19-29); Chloride 106 mEq/L (98-109); Glucose 115 mg/dL (70-99); Osmolality,Calculated 286 (280-300); Potassium 3.7 mEq/L (3.5-4.5); Sodium 138 mEq/L (136-145); eGFR For African Americans > 60 (> 60); eGFR For Non-African Americans > 60 (> 60)
--- NOTE | 2016-11-14 10:17 | Internal Med Progress Note ---
Date of Encounter: 11/14/16 Time of Encounter: 08:30 - Assessment and plan (1) Overdose Current Visit: Yes Status: Acute Assessment and plan: Admitted secondary to heroin overdose UDS positive for opiates, cocaine, and marijuana Mental status improved continue supportive care IV fluids Can be transferred out of the ICU, awaiting bed placement Qualifiers: Encounter type: initial encounter Injury intent: accidental or unintentional Qualified Code(s): T50.901A - Poisoning by unspecified drugs, medicaments and biological substances, accidental (unintentional), initial encounter (2) UTI (urinary tract infection) Current Visit: Yes Status: Acute Assessment and plan: UA consistent with UTI follow up urine cultures can be contributing to the leukocytosis continue empiric IV abx HIV and hepatitis panel: Nonreactive 2D echo negative for valvular vegetations continue IV fluids Acetaminophen Prn fever Qualifiers: Urinary tract infection type: site unspecified Hematuria presence: without hematuria Qualified Code(s): N39.0 - Urinary tract infection, site not specified (3) Leukocytosis Current Visit: Yes Status: Acute Assessment and plan: Likely multifactorial management as listed above Qualifiers: Leukocytosis type: unspecified Qualified Code(s): D72.829 - Elevated white blood cell count, unspecified (4) ASHLEE (acute kidney injury) Current Visit: Yes Status: Resolved Assessment and plan: Resolved at this time continue to monitor (5) DVT prophylaxis Current Visit: Yes Status: Acute Assessment and plan: Heparin SQ (6) Hypophosphatemia Current Visit: Yes Status: Acute Assessment and plan: Phos supplemented will continue to monitor electrolytes and replace as needed - Subjective Interval history: Patient seen and examined at bedside. Reports of feeling better compared to previous day. Awake and alert. Denies prior history of drug abuse. Echo shows LVEF of 65% and no valvular abnormalities reported. Patient stable for transfer out of the ICU to any tele bed. - Constitutional Vitals: Temp Pulse Resp BP Pulse Ox 98.7 F 48 20 118/77 97 11/14/16 07:27 11/14/16 09:00 11/14/16 09:00 11/14/16 09:00 11/14/16 09:00 General appearance: Present: disheveled, A&O X 3, no acute distress, answers questions appropriately - Head Head exam: Present: atraumatic, normocephalic - Eye Eye exam: Present: normal appearance, conjuntiva pink, sclera anicteric - Respiratory Respiratory exam: Present: CTAB. Absent: accessory muscle use, rales, rhonchi, wheezes - Cardiovascular Cardiovascular exam: Present: bradycardia, +S1, +S2. Absent: diastolic murmur, gallop, rubs, systolic murmur - GI/Abdominal GI/Abdominal exam: Present: normal bowel sounds, soft, no peritoneal signs. Absent: distended, tenderness - Extremities Exam Extremities exam: Present: warm, radial pulses palpable and symetrical. Absent : calf tenderness, cyanotic, pedal edema - Neurological Exam Neurological exam: Present: alert, oriented X3 - Psychiatric Psychiatric exam: Present: normal affect, normal mood Internal Medicine: Result - Labs CBC & Chem 7: 11/14/16 07:59 11/14/16 07:59 Labs: Short CBC 11/14/16 11/14/16 Range/Units 04:44 07:59 WBC 10.7 D 11.8 H (4.3-11.1) K/mcL Hgb 11.1 L 11.4 L (11.5-15.4) g/dL Hct 33.0 L 33.5 L (35.3-44.9) % Plt Count 316 312 (140-400) K/mcL Neutrophils # 8.9 10.1 H (1.6-8.9) K/mcL BMP 11/14/16 11/14/16 04:44 07:59 Sodium 138 138 Potassium 3.6 3.7 Chloride 107 106 Carbon Dioxide 21 24 BUN 11 10 Creatinine 0.79 0.79 Glucose 132 H 115 H Calcium 8.2 L 8.0 L Consult Discharge Plan - Plan Referrals: NO,PCP [Primary Care Provider] -
[2016-11-14] MEDS ORDERED: Vancomycin 1,500 MG in D5% in Water 250 ML IVPB SCH (23:00)
[2016-11-15] MEDS: Ampicillin/Sulbactam 3,000 MG in 0.9 % Sodium Chloride Mini Bag 100 ML IVPB SCH ×2 (00:10→06:07)
[2016-11-15] MEDS: Insulin LISPRO 300 UNITS/3 ML VIAL SQ SCH ×2 (00:17→06:08)
[2016-11-15] MEDS: 0.9 % Sodium Chloride 1,000 ML IVC SCH (05:04)
[2016-11-15] MEDS: *HR* Heparin 5,000 UNIT/ML VIAL SQ SCH (06:07)
[2016-11-15 06:47] LABS: Basophils # 0.1 K/mcL (0.0-0.2); Basophils % 0.7 %; Eosinophils % 0.3 %; Hemoglobin 10.6 g/dL (11.5-15.4); Immature Granulocytes % 1.2 % (0-4); Lymphocytes # 2.5 K/mcL (0.6-4.6); Mean Corpuscular HGB Conc 33.1 g/dL (31.6-35.5); Mean Corpuscular Hemoglobin 29.6 pg (28.0-33.3); Mean Corpuscular Volume 89.4 fL (83.0-100.0); Mean Platelet Volume 11.6 fL (9.4-12.4); Monocytes # 0.6 K/mcL (0.0-1.3); Monocytes % 7.7 %; Neutrophils # 4.3 K/mcL (1.6-8.9); Platelet Count 300 K/mcL (140-400); Red Blood Count 3.58 M/mcL (3.82-4.97); Red Cell Distribution Width 14.3 % (11.5-14.5); Segmented Neutrophils % 57.1 %
[2016-11-15 07:05] LABS: BUN/Creatinine Ratio 10 (6-26); Blood Urea Nitrogen 8 mg/dL (7-20); Calcium 7.9 mg/dL (8.6-10.8); Carbon Dioxide 22 mEq/L (19-29); Chloride 109 mEq/L (98-109); Glucose 108 mg/dL (70-99); Magnesium 1.8 mg/dL (1.6-2.6); Osmolality,Calculated 289 (280-300); Phosphorous 1.9 mg/dL (2.3-4.7); Potassium 3.4 mEq/L (3.5-4.5); Sodium 140 mEq/L (136-145); eGFR For African Americans > 60 (> 60); eGFR For Non-African Americans > 60 (> 60)
[2016-11-15 07:55] LABS: Ionized Calcium 1.14 mmol/L (1.15-1.35)
[2016-11-15] MEDS ORDERED: cloNIDine HCl 0.1 MG TABLET PO ONE (08:03)
[2016-11-15] MEDS ORDERED: Potassium Phosphate 44 MEQ in 0.9 % Sodium Chloride 250 ML IVPB ONE (08:03)
[2016-11-15] MEDS: *HR* Promethazine 25 MG/ML VIAL IVP PRN (08:14)
[2016-11-15] MEDS ORDERED: diazePAM 10 MG/2 ML SYRINGE IVP PRN (08:56)
[2016-11-15] MEDS ORDERED: CloNIDine Patch 0.1 MG PATCH (WEEKLY) TD SCH (09:00)
--- NOTE | 2016-11-15 09:00 | Internal Med Progress Note ---
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 (2) Overdose Current Visit: Yes Status: Acute Assessment and plan: Admitted secondary to heroin overdose UDS positive for opiates, cocaine, and marijuana Mental status improved continue supportive care IV fluids Qualifiers: Encounter type: initial encounter Injury intent: accidental or unintentional Qualified Code(s): T50.901A - Poisoning by unspecified drugs, medicaments and biological substances, accidental (unintentional), initial encounter (3) UTI (urinary tract infection) Current Visit: Yes Status: Acute Assessment and plan: UA consistent with UTI follow up urine cultures D/C vancomycin, continue Ampicillin, will switch to PO meds once able to tolerate HIV and hepatitis panel: Nonreactive 2D echo negative for valvular vegetations continue IV fluids Acetaminophen Prn fever Qualifiers: Urinary tract infection type: site unspecified Hematuria presence: without hematuria Qualified Code(s): N39.0 - Urinary tract infection, site not specified (4) Leukocytosis Current Visit: Yes Status: Resolved Qualifiers: Leukocytosis type: unspecified Qualified Code(s): D72.829 - Elevated white blood cell count, unspecified (5) ASHLEE (acute kidney injury) Current Visit: Yes Status: Resolved (6) DVT prophylaxis Current Visit: Yes Status: Acute Assessment and plan: Heparin SQ (7) Hypophosphatemia Current Visit: Yes Status: Acute Assessment and plan: Phos supplemented will continue to monitor electrolytes and replace as needed (8) Hyperkalemia Current Visit: Yes Status: Acute Assessment and plan: K supplemented - Subjective Interval history: patient seen and examined at bedside. Extremely restless, reported to have left the room to cigarette several times since last night. At this time patient appears to be actively going through heroin withdrawal symptoms. Is extremely anxious, nauseous with vomiting, and reports of abd cramping pain. Reports of using heroin daily for the last few months. - Constitutional Vitals: Temp Pulse Resp BP Pulse Ox 98.5 F 54 15 120/70 97 11/15/16 04:33 11/15/16 04:33 11/15/16 04:33 11/15/16 04:33 11/15/16 04:33 General appearance: Present: disheveled, A&O X 3, no acute distress, answers questions appropriately - Head Head exam: Present: atraumatic, normocephalic - Eye Eye exam: Present: normal appearance, conjuntiva pink, sclera anicteric - Respiratory Respiratory exam: Present: accessory muscle use - Cardiovascular Cardiovascular exam: Present: RRR, +S1, +S2. Absent: diastolic murmur, gallop, rubs, systolic murmur - GI/Abdominal GI/Abdominal exam: Present: normal bowel sounds, soft, no peritoneal signs. Absent: distended, tenderness - Extremities Exam Extremities exam: Present: warm, radial pulses palpable and symetrical. Absent : calf tenderness, cyanotic, pedal edema - Neurological Exam Neurological exam: Present: alert, oriented X3 - Psychiatric Psychiatric exam: Present: anxious Internal Medicine: Result - Labs CBC & Chem 7: 11/15/16 06:20 11/15/16 06:20 Labs: Short CBC 11/15/16 Range/Units 06:20 WBC 7.5 (4.3-11.1) K/mcL Hgb 10.6 L (11.5-15.4) g/dL Hct 32.0 L (35.3-44.9) % Plt Count 300 (140-400) K/mcL Neutrophils # 4.3 (1.6-8.9) K/mcL BMP 11/15/16 06:20 Sodium 140 Potassium 3.4 L Chloride 109 Carbon Dioxide 22 BUN 8 Creatinine 0.81 Glucose 108 H Calcium 7.9 L Consult Discharge Plan - Plan Referrals: NO,PCP [Primary Care Provider] -
[2016-11-15] MEDS: Ondansetron 4 MG/2 ML VIAL IVP PRN (09:12)
[2016-11-15 10:58] VITALS: BP 155/79
[2016-11-15] MEDS: Potassium Phosphate 44 MEQ in 0.9 % Sodium Chloride 250 ML IVPB PRN (11:06)
[2016-11-15] MEDS ORDERED: Aminoglycoside Consult 1 EACH MC ONE (12:26)
== END 2016-11-15 12:27 | disposition left against medical advice (07) | DRG 816 ==
LOC: ICNU 21:18 → EMEROO 21:18 → ICNU 11-13 00:50 → SUATTDRO 11-13 02:04 → 3NENU 11-14 15:57
PROVIDERS: ADMIT Internal Medicine; ATTEND Internal Medicine